=== PATIENT | male | born 2005 | race African-American/Black ===

== ENCOUNTER 2024-01-14 22:41 | Emergency (ER) | payer OTHER ==
[2024-01-14 22:52] VITALS: BP 115/74; PULSE 89; RESP 18; TEMP 98.2; BMI 19.0
[2024-01-14] MEDS ORDERED: DIPHTH,PERTUSS(ACELL),TET 0.5 ML DISP.SYRIN IM ONE (23:35)
[2024-01-14] MEDS: DIPHTH,PERTUSS(ACELL),TET 0.5 ML DISP.SYRIN IM ONE (23:36)
== END 2024-01-15 00:32 | disposition home or self-care (01) ==
LOC: JER 22:41
PROC: 0HQDXZZ Repair Right Lower Arm Skin, External Approach (ICD-10-PCS; principal; 2024-01-14)
PROC: 3E0234Z Introduction of Serum, Toxoid and Vaccine into Muscle, Percutaneous Approach (ICD-10-PCS; 2024-01-14)
DX: S51.811A Laceration without foreign body of right forearm, initial encounter (principal); W25.XXXA Contact with sharp glass, initial encounter; Z23 Encounter for immunization
CPT/HCPCS: 12001-25; 73090-TC-RT-FY; 90471; 90715; 99283-25

== ENCOUNTER 2024-01-27 11:59 | Emergency (ER) | payer OTHER ==
[2024-01-27 15:24] VITALS: BP 114/77; PULSE 66; RESP 16; TEMP 98.2; BMI 18.2
== END 2024-01-27 12:54 | disposition home or self-care (01) ==
LOC: FER 11:59
DX: Z48.02 Encounter for removal of sutures (principal)
CPT/HCPCS: 99281-25

== ENCOUNTER 2024-06-10 19:08 | Observation (INO) | payer OTHER ==
[2024-06-10 22:29] LABS: BASO % 0.9 % (0-2.0); EOS % 0.6 % (0-4.5); HEMATOCRIT 41.2 % (35.4-49); HEMOGLOBIN 13.5 GM/dL (11.7-16.9); LYMPH % 25.7 % (8-40); MCH 26.5 pg (25.7-33.7); MCHC 32.7 g/dl (32.0-35.9); MEAN CELL VOLUME 81.1 fl (80-96); MEAN PLT VOLUME 9.1 fl (7.5-11.1); MONO % 5.9 % (3.8-10.2); NEUT % 66.9 % (42.8-82.8); PLATELET COUNT 214 10^3/uL (134-434); RBC 5.08 M/mm3 (4.00-5.60); WHITE BLOOD COUNT 6.5 K/mm3 (4.0-10.0)
[2024-06-10 22:49] LABS: POTASSIUM 3.9 mmol/L (3.5-5.1)
[2024-06-10 22:51] LABS: ALBUMIN 4.7 g/dl (3.4-5.0); BLOOD UREA NITROGEN 10.3 mg/dL (7-18); CALCIUM 9.5 mg/dL (8.5-10.1)
[2024-06-10 22:52] LABS: MAGNESIUM 2.3 mg/dL (1.8-2.4)
[2024-06-10 22:55] LABS: CREATININE 0.9 mg/dL (0.55-1.3)
[2024-06-10 22:56] LABS: BILIRUBIN,TOTAL 0.5 mg/dL (0.2-1); TOT PROT 7.6 g/dl (6.4-8.2)
[2024-06-10 23:45] LABS: HIV INTERPRETATION NEGATIVE (NEGATIVE)
[2024-06-10 23:48] LABS: COCAINE, UR NEGATIVE (NEGATIVE); URINE AMPHETAMINES NEGATIVE (NEGATIVE); URINE BARBITURATES NEGATIVE (NEGATIVE)
[2024-06-10 23:49] LABS: URINE BENZODIAZEPINES NEGATIVE (NEGATIVE)
[2024-06-10 23:53] LABS: METHADONE, UR NEGATIVE (NEGATIVE); OPIATES, URI NEGATIVE (NEGATIVE); PHENCYCLIDINE,URINE NEGATIVE (NEGATIVE)
[2024-06-11 08:02] LABS: HEMATOCRIT 40.5 % (35.4-49); HEMOGLOBIN 13.7 GM/dL (11.7-16.9); MCH 26.9 pg (25.7-33.7); MCHC 33.8 g/dl (32.0-35.9); MEAN CELL VOLUME 79.7 fl (80-96); PLATELET COUNT 218 10^3/uL (134-434); RBC 5.09 M/mm3 (4.00-5.60); RDW 14.1 % (11.9-15.9); WHITE BLOOD COUNT 5.7 K/mm3 (4.0-10.0)
[2024-06-11 08:31] LABS: ALBUMIN 4.6 g/dl (3.4-5.0); BLOOD UREA NITROGEN 8.9 mg/dL (7-18); CALCIUM 9.8 mg/dL (8.5-10.1)
[2024-06-11 08:32] LABS: MAGNESIUM 2.3 mg/dL (1.8-2.4)
[2024-06-11 08:34] LABS: CREATININE 0.9 mg/dL (0.55-1.3); PHOSPHOROUS 3.7 mg/dL (2.5-4.9)
[2024-06-11 08:35] VITALS: BP 143/80; PULSE 105; RESP 18; TEMP 98.8
[2024-06-11 08:35] LABS: BILIRUBIN,TOTAL 0.8 mg/dL (0.2-1); TOT PROT 7.7 g/dl (6.4-8.2)
[2024-06-11] MEDS ORDERED: ENOXAPARIN NA (PORCINE) 40 MG/0.4 ML DISP.SYRIN SQ SCH (10:00)
[2024-06-11 12:14] VITALS: BMI 16.0
== END 2024-06-11 16:20 | disposition home or self-care (01) ==
LOC: JER 19:08 → JERBED 22:52 → UNDOADMOB 22:52 → OBSVTOIN 06-11 00:52 → INTOOBSV 06-11 00:52 → J4W 06-11 03:04 → JERBED 06-11 03:04 → J4W 06-11 09:28
PROVIDERS: ADMIT Internal Medicine; ATTEND Internal Medicine
DX: R00.0 Tachycardia, unspecified (principal); R00.2 Palpitations; I49.9 Cardiac arrhythmia, unspecified; R94.31 Abnormal electrocardiogram [ECG] [EKG]; F12.90 Cannabis use, unspecified, uncomplicated
CPT/HCPCS: 0241U-QW; 36415; 80053; 80307; 83735; 84100; 84484; 85025; 85027; 86803; 87389; 93005; 93010; 93306-TC; 99285-25; G0378